=== PATIENT | female | born 1955 | race Caucasian/White ===

== ENCOUNTER 2018-06-25 08:16 | Emergency (ER) | payer OTHER ==
[2018-06-25 08:23] VITALS: BMI 29.0
[2018-06-25 08:24] VITALS: TEMP 98; O2SAT 99
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
--- NOTE | 2018-06-25 14:53 | CT ---
Date of service: 06/25/2018 PROCEDURE: CT Lumbar Spine without contrast HISTORY: abnormal LS xray COMPARISON: Plain radiographs performed earlier the same day. TECHNIQUE: Axial computed tomography images were obtained of the lumbar spine without the use of intravenous contrast. Coronal and sagittal reformatted images were created and reviewed. Radiation dose: Total exam DLP = 810.72 mGy-cm. This CT exam was performed using one or more of the following dose reduction techniques: Automated exposure control, adjustment of the mA and/or kV according to patient size, and/or use of iterative reconstruction technique. FINDINGS: VERTEBRAE: There is normal alignment of the lumbar vertebral bodies. There is normal lumbar lordosis. No acute fracture, spondylolysis or spondylolisthesis. A curvilinear ossific density posterior to the spinous process of L3 on the right likely represents an old avulsion fracture or soft tissue ossification. No evidence for acute fracture. DISCS/SPINAL CANAL/NEURAL FORAMINA: There is mild multilevel degenerative disc disease with posterior disc bulges from L3-4 to L5-S1 without central spinal canal stenosis. PARASPINAL SOFT TISSUES: The paraspinous soft tissues are normal. There. Is a cyst with layering high attenuation in the interpolar region of the left kidney consistent with milk of calcium. There is a 4.7 x 2.3 cm isodense mass with interspersed high attenuation areas in the right adnexa. There is a peripherally calcified cyst in the left ovary. There is sigmoid diverticulosis OTHER FINDINGS: None. IMPRESSION: No acute fracture, spondylolysis or spondylolisthesis. The questioned curvilinear ossific density posterior to the L3 spinous process on the right is most compatible with an old avulsion fracture or soft tissue ossification. No evidence for acute fracture. Indeterminate 4.7 x 2.3 cm mass in the right adnexa. Correlation with dedicated pelvic ultrasound is recommended for further evaluation.
[2018-06-25 15:21] VITALS: BP 149/80; PULSE 79; RESP 18
== END 2018-06-25 15:33 | disposition home or self-care (01) ==
LOC: H.ER 08:16
DX: S39.012A Strain of muscle, fascia and tendon of lower back, initial encounter (principal); E11.9 Type 2 diabetes mellitus without complications; I10 Essential (primary) hypertension; V43.52XA Car driver injured in collision with other type car in traffic accident, initial encounter
CPT/HCPCS: 72100; 72125; 72131; 82948; 96372; 99284; J1885